=== PATIENT | male | born 1980 | race Caucasian/White ===

== ENCOUNTER → 2023-07-30 11:11 | Outpatient (BNVA) | payer MEDICARE, MEDICAID, SELFPAY | PROVIDERS: Family Provider Family Medicine; PCP Family Medicine; Visit Provider Nurse Practitioner Family | DX: S83.005A Unspecified dislocation of left patella, initial encounter (principal); W19.XXXA Unspecified fall, initial encounter; M25.462 Effusion, left knee | CPT/HCPCS: 73562 ==